=== PATIENT | male | born 1940 | race African-American/Black ===

== ENCOUNTER 2019-08-20 09:04 | Emergency (ER) | payer MEDICARE ==
[~2019-08-20] VITALS: Ht 180.3 cm; Wt 81.2 kg
[~2019-08-20 09:04] MED LIST: CYCL10TA2 PO; HYDR-3164 PO; PRED20TA PO
[2019-08-20 09:43] LABS: BASO % 1 % (0-3); EOS # 0.1 x10^3/uL (0.0-0.7); EOS % 3 % (0-3); HEMATOCRIT 38.5 % (39.0-53.0); HEMOGLOBIN 13.3 g/dL (13.0-17.5); LYMPH # 1.2 x10^3/uL (1.0-4.8); LYMPH % 30 % (24-48); MEAN CORPUSCULAR HEMOGLOBIN 31 pg (25-35); MEAN CORPUSCULAR HGB CONC 35 g/dL (31-37); MEAN CORPUSCULAR VOLUME 89 fL (79-100); MONO # 0.4 x10^3/uL (0.0-1.1); MONO % 11 % (0-9); NEUT # 2.1 x10^3/uL (1.8-7.7); NEUT % 55 % (31-73); PLATELET COUNT 162 x10^3/uL (140-400); RED CELL DISTRIBUTION WIDTH 13.2 % (11.5-14.5); WHITE BLOOD COUNT 3.8 x10^3/uL (4.0-11.0)
--- NOTE | 2019-08-20 09:46 | RAD ---
Examination: PORTABLE CHEST 1V History: 10/04/2018 portable chest x-ray Comparison/Correlation: 10/04/2008 Portable Chest X-ray Exam Findings: Upright portable frontal view chest was obtained. Heart size and pulmonary vasculature are normal. No infiltrate or pleural effusion. Bony structures are unremarkable. No pneumothorax. Impression: No active disease. Electronically signed by: Joseph Pritchett MD (08/20/2019 9:43 AM) [facility]
--- NOTE | 2019-08-20 09:47 | EKG ---
[facility] [address] [place] [address] Test Date: 2019-08-20 Test Time: 09:11:19 Pat Name: HITESH ABDUL Department: Room: Gender: M Service Cleaner: : 1940 Requested By: MIKE GAMEZ Order Number: [id number] Reading MD: Measurements Intervals [place] Rate: 58 P: 66 ID: 160 QRS: 15 QRSD: 86 T: -100 QT: 390 QTc: 390 Interpretive Statements SINUS RHYTHM ATRIAL PREMATURE COMPLEX(ES) T ABNORMALITY IN INFEROLATERAL LEADS NON SPECIFIC ST DEPRESSION ABNORMAL ECG No previous ECG available for comparison
[2019-08-20 09:53] LABS: PROTHROMBIN TIME PATIENT 12.9 SEC (11.7-14.0)
[2019-08-20 10:02] LABS: CALCIUM 9.2 mg/dL (8.5-10.1); CREATININE 0.9 mg/dL (0.7-1.3); GFR 98.7; POTASSIUM 3.8 mmol/L (3.5-5.1)
[2019-08-20 10:08] LABS: ALBUMIN 3.9 g/dL (3.4-5.0); ALBUMIN/GLOBULIN RATIO 1.2 (1.0-1.7); TOTAL BILIRUBIN 0.6 mg/dL (0.2-1.0); TOTAL PROTEIN 7.2 g/dL (6.4-8.2)
[2019-08-20 11:00] VITALS: BP 138/78
--- NOTE | 2019-08-20 11:44 | PHYS DOC ---
Past Medical History Past Medical History: CAD, Diabetes-Type II, High Cholesterol, NM Past Surgical History: Appendectomy, Other Additional Past Surgical Histo: cardiac stents Additional Information: quit 30-40 years ago Alcohol Use: None Drug Use: None Adult General Chief Complaint Chief Complaint: CHEST PAIN [facility] HPI Patient is a 79 year old right-handed male who presents with complaining of right-sided chest pain. Patient states he cut wood yesterday and this morning he walked about 1 mile like his usual without problem. Patient complaining of right chest pain as a sharp pain with radiation to the left side of chest after arrival to home that last about few seconds without shortness of breath, dizziness, palpitation, nausea and vomiting. Patient states had the same pain after movement of his right arm for a few seconds and rated his pain 8/10. Patient denies chest pain at arrival to ER. Review of Systems Review of Systems Constitutional: Denies fever or chills [] Eyes: Denies change in visual acuity, redness, or eye pain [] HENT: Denies nasal congestion or sore throat [] Respiratory: Denies cough or shortness of breath [] Cardiovascular: No additional information not addressed in HPI [] GI: Denies abdominal pain, nausea, vomiting, bloody stools or diarrhea [] : Denies dysuria or hematuria [] Musculoskeletal: Denies back pain or joint pain [] Integument: Denies rash or skin lesions [] Neurologic: Denies headache, focal weakness or sensory changes [] Endocrine: Denies polyuria or polydipsia [] All other systems were reviewed and found to be within normal limits, except as documented in this note. Allergies Allergies Allergies Coded Allergies Type Severity Reaction Last Updated Verified No Known Drug Allergies 06/29/16 No Physical Exam Physical Exam Constitutional: Well developed, well nourished, no acute distress, non-toxic appearance. [] HENT: Normocephalic, atraumatic, bilateral external ears normal, oropharynx moist, no oral exudates, nose normal. [] Eyes: PERRLA, EOMI, conjunctiva normal, no discharge. [] Neck: Normal range of motion, no tenderness, supple, no stridor. [] Cardiovascular:Heart rate regular rhythm, no murmur [] Lungs & Thorax: Bilateral breath sounds clear to auscultation [] Abdomen: Bowel sounds normal, soft, no tenderness, no masses, no pulsatile masses. [] Skin: Warm, dry, no erythema, no rash. [] Back: No tenderness, no CVA tenderness. [] Extremities: No tenderness, no cyanosis, no clubbing, ROM intact, no edema. [] Neurologic: Alert and oriented X 3, normal motor function, normal sensory function, no focal deficits noted. [] Psychologic: Affect normal, judgement normal, mood normal. [] Current Patient Data Vital Signs Vital Signs Date Time Temp Pulse Resp B/P (MAP) Pulse Ox O2 Delivery O2 Flow Rate FiO2 08/20/19 09:15 97.9 58 18 127/58 (81) Room Air 98.0 97.9 Lab Values Laboratory Tests Test 08/20/19 09:30 White Blood Count 3.8 x10^3/uL (4.0-11.0) L Red Blood Count 4.30 x10^6/uL (4.30-5.70) Hemoglobin 13.3 g/dL (13.0-17.5) Hematocrit 38.5 % (39.0-53.0) L Mean Corpuscular Volume 89 fL (79-100) Mean Corpuscular Hemoglobin 31 pg (25-35) Mean Corpuscular Hemoglobin Concent 35 g/dL (31-37) Red Cell Distribution Width 13.2 % (11.5-14.5) Platelet Count 162 x10^3/uL (140-400) Neutrophils (%) (Auto) 55 % (31-73) Lymphocytes (%) (Auto) 30 % (24-48) Monocytes (%) (Auto) 11 % (0-9) H Eosinophils (%) (Auto) 3 % (0-3) Basophils (%) (Auto) 1 % (0-3) Neutrophils # (Auto) 2.1 x10^3/uL (1.8-7.7) Lymphocytes # (Auto) 1.2 x10^3/uL (1.0-4.8) Monocytes # (Auto) 0.4 x10^3/uL (0.0-1.1) Eosinophils # (Auto) 0.1 x10^3/uL (0.0-0.7) Basophils # (Auto) 0.0 x10^3/uL (0.0-0.2) Prothrombin Time 12.9 SEC (11.7-14.0) Prothrombin Time INR 1.0 (0.8-1.1) Sodium Level 140 mmol/L (136-145) Potassium Level 3.8 mmol/L (3.5-5.1) Chloride Level 101 mmol/L (98-107) Carbon Dioxide Level 28 mmol/L (21-32) Anion Gap 11 (6-14) Blood Urea Nitrogen 18 mg/dL (8-26) Creatinine 0.9 mg/dL (0.7-1.3) Estimated GFR (Cockcroft-Gault) 98.7 BUN/Creatinine Ratio 20 (6-20) Glucose Level 196 mg/dL (70-99) H Calcium Level 9.2 mg/dL (8.5-10.1) Total Bilirubin 0.6 mg/dL (0.2-1.0) Aspartate Amino Transferase (AST) 17 U/L (15-37) Alanine Aminotransferase (ALT) 11 U/L (16-63) L Alkaline Phosphatase 33 U/L (46-116) L Creatine Kinase 183 U/L (39-308) Troponin I Quantitative < 0.017 ng/mL (0.000-0.055) LJ-Tiq-K-Type Natriuretic Peptide 168 pg/mL (0-449) Total Protein 7.2 g/dL (6.4-8.2) Albumin 3.9 g/dL (3.4-5.0) Albumin/Globulin Ratio 1.2 (1.0-1.7) Lipase 122 U/L (73-393) Laboratory Tests 08/20/19 09:30 Laboratory Tests 08/20/19 09:30 EKG EKG EKG interpreted by me. EKG at 0911 showed normal sinus bradycardia at rate of 59, PACs, T-wave abnormality in inferior leads, no acute ST and T-wave abnorm alities. Radiology/Procedures Radiology/Procedures [][facility] [address] [place] [address] IMAGING REPORT Signed PATIENT: HITESH ABDUL ACCOUNT: [id number] : 1940 LOCATION: ER AGE: 79 SEX: M EXAM STATUS: REG ER ORD. PHYSICIAN: MIKE GAMEZ MD REASON: chest pain PROCEDURE: PORTABLE CHEST 1V Examination: PORTABLE CHEST 1V History: 10/04/2018 portable chest x-ray Comparison/Correlation: 10/04/2008 Portable Chest X-ray Exam Findings: Upright portable frontal view chest was obtained. Heart size and pulmonary vasculature are normal. No infiltrate or pleural effusion. Bony structures are unremarkable. No pneumothorax. Impression: No active disease. Electronically signed by: Joseph Cohen MD (08/20/2019 9:43 AM) [facility] DICTATED and SIGNED BY: JOSEPH COHEN MD DATE: 08/20/19 0943 Course & Med Decision Making Course & Med Decision Making Pertinent Labs and Imaging studies reviewed. (See chart for details) Evaluation of patient in ER showed 79-year-old male patient with heart score of 5 presented with 2 episodes of right sided chest pain for few seconds after movement of right upper extremity. Patient had heavy physical activity yesterday. Patient had unremarkable labs and EKG and chest x-ray except for white count of 2.8 and blood sugar of 196. Patient was chest pain-free ER and didn't want to have pain medication for home. Plan discharge patient home to diagnose of right-sided chest wall pain. Patient was advised to follow up with his primary care physician regarding leukopenia. Patient did not have previous lab in emergency room for comparing. I've spoken with the patient and/or caregivers. I've explained the patient's condition, diagnosis and treatment plan based on information available to me at this time. I've answered the patient's and/or caregivers questions and addressed any concerns. The patient and/or caregivers have a good understanding the patient's diagnosis, condition and treatment plan as can be expected at this point. Vital signs have been stabilized. The patient's condition is stable for discharge from the emergency department. The patient will pursue further outpatient evaluation with her primary care provider or other designated consulting physician as outlined in the discharge instructions. Patient and/or caregivers are agreeable to this plan of care and follow-up instructions have been explained in detail. The patient and/or caregivers have received these instructions in written format and expressed understanding of these discharge instructions. The patient and her caregivers are aware that if any significant change in condition or worsening of symptoms should prompt him to immediately return to this of the closest emergency department. If an emergent department is not readily available I would encourage him to call 911. Angella Disclaimer Dragon Disclaimer This electronic medical record was generated, in whole or in part, using a voice recognition dictation system. Departure Departure Impression: Primary Impression: Musculoskeletal chest pain Additional Impression: Leukopenia Disposition: HOME, SELF-CARE (at 1141) Condition: STABLE Referrals: TETE WELCH MD (PCP) Patient Instructions: Chest Wall Pain Additional Instructions: May take [id number] pain medication as needed for chest wall pain Follow-up with your primary care physician in 3-5 days for evaluation of low white blood cell Return to ER if not getting better The HEART Score for CP Pts HEART Score for Chest Pain: HEART Score for Chest Pain Response (Comments) Value History Slighlty/Non-Suspicious 0 ECG Nonspecific Repolarizatio 1 Age > 65 2 Risk Factors >3 Risk Factors or Hx CAD 2 Troponin < Normal Limit 0 Total 5 Risk Factors: Risk Factors: DM, Current or recent (<one month) smoker, HTN, HLP, family history of CAD, obesity. Risk Scores: Score 0 - 3: 2.5% MACE over next 6 weeks - Discharge Home Score 4 - 6: 20.3% MACE over next 6 weeks - Admit for Clinical Observation Score 7 - 10: 72.7% MACE over next 6 weeks - Early Invasive Strategies Problem Qualifiers Additional Impression: Leukopenia Leukopenia type: unspecified Qualified Codes: D72.819 - Decreased white blood cell count, unspecified MIKE GAMEZ MD Aug 20, 2019 11:43
== END 2019-08-20 12:01 | disposition home or self-care (01) ==
LOC: ER 09:04
DX: R07.89 Other chest pain (principal); D72.819 Decreased white blood cell count, unspecified; I25.10 Atherosclerotic heart disease of native coronary artery without angina pectoris; E11.9 Type 2 diabetes mellitus without complications; E78.00 Pure hypercholesterolemia, unspecified; I25.2 Old myocardial infarction; Z87.891 Personal history of nicotine dependence
CPT/HCPCS: 36415; 71045; 80053; 82550; 83690; 83880; 84484; 85025; 85610; 93005; 99285